=== PATIENT | male | born 1975 | race Caucasian/White ===

== ENCOUNTER 2021-10-23 09:12 | Day surgery (SDC) | payer BC ==
[~2021-10-23] VITALS: Ht 193 cm; Wt 108.0 kg
[~2021-10-23 09:12] MED LIST: NO HOME MEDICATIONS
[2021-10-23] MEDS ORDERED: FLONASE NASAL S16 GM NS (09:21)
[2021-10-23 09:45] VITALS: BP 126/77; PULSE 81; TEMP 97.9
[2021-10-23 11:40] VITALS: BP 119/72; PULSE 70; TEMP 97.7
--- NOTE | 2021-10-23 11:40 | NUR ---
pt to [facility] via cart, walked to chair, in room. call light in reach, takes snack, no c/o
[2021-10-23 11:55] VITALS: BP 119/72; PULSE 72
[2021-10-23 12:10] VITALS: BP 109/90; PULSE 75
--- NOTE | 2021-10-23 12:10 | NUR ---
into see pt, IV d'cd intact, reviewed discharge inst. with pt and information given from Dr on banding with polyp removal, also moderate sedation inst. given with verbal understanding. pt up in room dressed and discharged via w/c with to car
== END 2021-10-23 12:10 | disposition home or self-care (01) ==
LOC: SDCO 09:12
DX: Z12.11 Encounter for screening for malignant neoplasm of colon (principal); D12.3 Benign neoplasm of transverse colon; K64.1 Second degree hemorrhoids; J30.9 Allergic rhinitis, unspecified; Z85.828 Personal history of other malignant neoplasm of skin; Z79.899 Other long term (current) drug therapy
CPT/HCPCS: J2704; J7120